=== PATIENT | male | born 1955 | race Caucasian/White ===

== ENCOUNTER 2020-11-16 07:01 | Outpatient (CLI) | payer MEDICARE ==
[2020-11-16 16:44] LABS: SARS-CoV-2 PCR by NAA Not Detected (NotDetected)
== END 2020-11-16 07:02 | disposition home or self-care (01) ==
LOC: CSHLAB 07:01
PROVIDERS: ATTEND Surgery
DX: Z20.822 Contact with and (suspected) exposure to COVID-19 (principal); K21.9 Gastro-esophageal reflux disease without esophagitis
CPT/HCPCS: 87635; U0003; U0005

== ENCOUNTER 2020-11-21 06:13 | Day surgery (SDC) | payer MEDICARE ==
[2020-11-20 14:59] VITALS: BMI 40.1
[2020-11-21] MEDS ORDERED: Lidocaine 1% MPF 2 ML VIAL ONE (07:34)
[2020-11-21] MEDS ORDERED: Fentanyl 100 MCG/2 ML VIAL ONE (07:58)
[2020-11-21] MEDS ORDERED: PROPOFOL 20 ML ONE (07:58)
[2020-11-21] MEDS ORDERED: Midazolam HCl 2 mg/2 ml Vial ONE (07:58)
[2020-11-21] MEDS ORDERED: Lidocaine 1% PF 5 ML VIAL ONE (07:58)
[2020-11-21] MEDS ORDERED: Ondansetron PF 4 MG/2 ML Vial ONE (08:08)
== END 2020-11-21 09:10 | disposition home or self-care (01) ==
LOC: CSHSDC 06:13
PROVIDERS: ATTEND Surgery
DX: K21.9 Gastro-esophageal reflux disease without esophagitis (principal); K31.9 Disease of stomach and duodenum, unspecified; E66.01 Morbid (severe) obesity due to excess calories; K44.9 Diaphragmatic hernia without obstruction or gangrene
CPT/HCPCS: 88305; J2250; J2405; J2704; J3010